=== PATIENT | male | born 1985 | race Caucasian/White ===

== ENCOUNTER 2016-10-08 12:52 | Emergency (ER) | payer BC, OTHER ==
[~2016-10-08] VITALS: Ht 182.9 cm; Wt 79.4 kg
--- NOTE | 2016-10-08 13:35 | ED Upper Extremity ---
General Chief Complaint: Upper Extremity Stated Complaint: KNOT UNDER LEFT ARM Nursing Triage Note: PT STATES HAVING A KNOT UNDER HIS LT ARM THAT HE NOTICED LAST FRIDAY. STATES IT FEELS LIKE HIS ARM IS "PUMPED UP" LIKE AFTER LIFTING WEIGHTS. Nursing Sepsis Screen: No Definite Risk Source: patient Exam Limitations: no limitations History of Present Illness Time seen by provider: 13:34 Initial Comments To ER with a knot under his left arm at the axilla that he noticed last Friday. States it feels like his arm is "pumped up" as if he didn't lifting weights. This did start after lifting weights. He states intermittently since then the left arm feels cold but this is not a constant sensation. 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 Onset: just prior to arrival Severity: moderate Pain/Injury Location: left arm Allergies and Home Medications Allergies Coded Allergies: No Known Drug Allergies (Unverified , 10/08/16) Home Medications No Active Prescriptions or Reported Meds Constitutional: see HPI EENTM: see HPI Respiratory: no symptoms reported Cardiovascular: no symptoms reported Genitourinary: no symptoms reported Musculoskeletal: no symptoms reported Skin: no symptoms reported Psychiatric/Neurological: No Symptoms Reported Past Mojczhn-Syrcga-Xabesk Hx Patient Social History Alcohol Use: Occasionally Uses Recreational Drug Use: No Smoking Status: Never a Smoker Recent Foreign Travel: No Contact w/Someone Who Travel: No Recent Infectious Disease Expo: No Seasonal Allergies Seasonal Allergies: No Cardiovascular Cardiac Disorders: Irregular Heartbeat Physical Exam Vital Signs Vital Sign - Last 12Hours 10/08/16 13:15 Temp 98.5 Pulse 84 Resp 18 B/P (MAP) 159/94 Pulse Ox 99 O2 Delivery Room Air Capillary Refill : Less Than 3 Seconds General Appearance: WD/WN, no apparent distress HEENT: PERRL/EOMI, normal ENT inspection Neck: non-tender, full range of motion Respiratory: no respiratory distress, no accessory muscle use Gastrointestinal: normal bowel sounds, non tender, soft Shoulder: normal inspection, non-tender Elbow/Forearm: normal inspection, non-tender, Left Wrist: Yes normal inspection, Yes non-tender Hand: normal inspection, non-tender Neurologic/Psychiatric: alert, normal mood/affect, oriented x 3 Comments There is a soft bouncy area to the left axilla that feels like it is an engorged vein. There is no discoloration around this to suggest that this might be an abscess, there is no discoloration of the hand, the radial pulse is strong. Progress/Results/Core Measures Results/Orders My Orders Orders - THERESA BARON APRN Us Venous Upper Ext Lt (10/08/16 13:32) Us Left Up Ext Arterial [id number] (10/08/16 13:32) Vital Signs/I&O Vital Sign - Last 12Hours 10/08/16 13:15 Temp 98.5 Pulse 84 Resp 18 B/P (MAP) 159/94 Pulse Ox 99 O2 Delivery Room Air Blood Pressure Mean: 115 Departure Impression Impression: Primary Impression: Engorgement of vein Additional Impression: Brachial plexopathy Disposition: HOME, SELF-CARE Condition: Stable Departure-Patient Inst. Decision time for Depature: 14:55 Referrals: NO,LOCAL PHYSICIAN (PCP) Primary Care Physician Patient Instructions: NO INSTRUCTIONS GIVEN Add. Discharge Instructions: 1. Follow-up with Dr. Lujan to discuss an MRI if symptoms persist 2. Return to ER for any concerns 3. All discharge instructions reviewed with patient and/or family. Voiced understanding. Scripts No Active Prescriptions or Reported Meds THERESA BARON APRN October 08, 2016 13:35
--- NOTE | 2016-10-08 14:55 | Diagnostic Imaging Report ---
INDICATION: Focal left arm pain and swelling. COMPARISON: None. TECHNIQUE: The left upper extremity deep venous system was interrogated from the internal jugular vein through the radial and ulnar veins. These images were assessed for grayscale appearance, color and spectral Doppler blood flow, compression, and augmentation. FINDINGS: There is no evidence of intraluminal filling defect. Normal compression and augmentation is noted throughout. Soft tissues are unremarkable. IMPRESSION: 1. No sonographic evidence of deep venous thrombosis in the left upper extremity. Dictated by: Dictated on workstation # [id number]
[2016-10-08 14:58] VITALS: BP 129/81
--- NOTE | 2016-10-08 14:58 | Diagnostic Imaging Report ---
INDICATION: Focal soft tissue swelling near the left axilla. COMPARISON: None. DISCUSSION: Sonographic evaluation of the left upper extremity arterial distribution was performed with a linear transducer. Images were assessed for grayscale appearance as well as color and spectral Doppler blood flow. No atherosclerotic plaque is identified. Normal flow velocities are present throughout with no sonographic evidence for a hemodynamically significant stenosis or arterial occlusion. No aneurysm is identified. The soft tissues are unremarkable. IMPRESSION: No sonographic evidence for arterial occlusion or hemodynamically significant stenosis within the left upper extremity. No aneurysm is identified. Dictated by: Dictated on workstation # [id number]
== END 2016-10-08 14:58 | disposition home or self-care (01) ==
LOC: ER 12:55
DX: I87.8 Other specified disorders of veins (principal); G54.0 Brachial plexus disorders; Z95.0 Presence of cardiac pacemaker
CPT/HCPCS: 93931; 99282